=== PATIENT | female | born 1975 | race Caucasian/White ===

== ENCOUNTER 2021-02-26 04:25 | Emergency (ER) | payer BC ==
[2021-02-26] MEDS ORDERED: Sodium Chloride 0.9% 2.5 ML Syringe FLUSH PRN (04:45)
[2021-02-26] MEDS ORDERED: Sodium Chloride 0.9% 10 ML Syringe FLUSH PRN (04:45)
[2021-02-26] MEDS ORDERED: Sodium Chloride 0.9% 500 ML IV SCH (04:45)
--- NOTE | 2021-02-26 04:54 | EDM.PDOC ---
ED HPI GENERAL MEDICAL PROBLEM - General Chief Complaint: Respiratory Problem Stated Complaint: COVID POSITIVE; SHORTNESS OF BREATH Time Seen by Provider: 02/26/21 04:54 - History of Present Illness INITIAL COMMENTS - FREE TEXT/NARRATIVE: HISTORY AND PHYSICAL: History of present illness: Is a 45-year-old female with a history significant for hypothyroidism who was recently diagnosed with coronavirus with symptom onset on February 17 who presents ER today secondary to increasing shortness of breath. Patient reports that she is not had any recent fevers. She reports nausea with decreased p.o. intake but has been able to tolerate p.o.'s solids and liquids. Patient denies any diarrhea. Patient has any abdominal pain or chest pain. Patient denies any recent dysuria, frequency, urgency. Patient has any calf tenderness or swelling. Patient has any history of PE/DVT in the past. Review of systems: As per history of present illness and below otherwise all systems reviewed and negative. Past medical history: As per history of present illness and as reviewed below otherwise noncontributory. Surgical history: As per history of present illness and as reviewed below otherwise noncontributory. Social history: No reported history of drug abuse. Family history: As per history of present illness and as reviewed below otherwise noncontributory. Physical exam: This patient was seen and evaluated during the 2019 SARS-CoV-2 novel coronavirus pandemic period. Community viral transmission is ongoing at time of this encounter and the emergency department is operating under pandemic response procedures. Constitutional: Patient is oriented to person, place, and time. Appears well- developed and well-nourished. No distress. HEENT: Moist mucous membranes Head: Normocephalic and atraumatic Eyes: Right eye exhibits no discharge. Left eye exhibits no discharge. No scleral icterus Neck: Normal range of motion. No tracheal deviation present. Cardiovascular: Normal rate and regular rhythm. Pulmonary: Effort normal, no respiratory distress. No wheezing rales or rhonchi Abdominal: No distention Musculoskeletal: Normal range of motion Neurologic: Alert and oriented to person, place and time. Skin: [place], warm and dry. Psychiatric: Normal mood and affect. Behavior is normal. Judgment and thought content normal. Nursing note and vital signs have been reviewed Diagnostics: CBC, CMP, D-dimer. Patient's D-dimer was elevated 0.55 CTA chest Therapeutics: Decadron 10 mg IV Assessment and plan: 45-year-old female with a recent diagnosis of coronavirus who presents ER today secondary increasing shortness of breath. Patient's pulse oximeter here in the ED is 91 to 95%. Patient does not appear to be in any respiratory distress at this time. Patient will have basic labs ordered and we will obtain a CTA of her chest to rule out PE. Patient's D-dimer was elevated 0.55. CTA is pending at this time. Patient has been resting comfortably in her room and does not appear to be in any distress at this time. Patient was given Toradol 15 mg IV to assist her with pain that she was having in her chest with inspiration and this seems to have significantly improved after the Toradol. Patient had asked regarding infusion of Regeneron. I had a discussion with the patient regarding the criteria. At this time the patient is approximately 9 days out from symptom onset. Patient does not appear to be having have any high risk criteria. Patient is under 65, no history of chronic kidney disease, diabetes, cardiac disease, hypertension, immunosuppressive disorders, chronic lung disease. Patient's BMI is 25.8. For these reasons, I do not believe that the patient will meet criteria for Regeneron infusion. Definitive disposition and diagnosis as appropriate pending reevaluation and review of above. 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 Endocrine/Metabolic History: Reports: Hypothyroidism - Infectious Disease History Infectious Disease History: Reports: None - Past Surgical History HEENT Surgical History: Reports: Tonsillectomy Social & Family History - Tobacco Use Tobacco Use Status *Q: Never Tobacco User - Recreational Drug Use Recreational Drug Use: No ED ROS GENERAL - Review of Systems Review Of Systems: See Below ED EXAM, GENERAL - Physical Exam Exam: See Below Course - Vital Signs Last Recorded V/S: Last Vital Signs Temp 97.3 F 02/26/21 07:30 Pulse 68 02/26/21 07:30 Resp 18 02/26/21 07:30 BP 101/65 02/26/21 07:30 Pulse Ox 93 L 02/26/21 07:30 - Orders/Labs/Meds Orders: Active Orders 24 hr Category Date Time Status Saline Lock Insert [OM.PC] Stat Oth 02/26/21 04:45 Ordered Labs: Laboratory Tests 02/26/21 02/26/21 02/26/21 Range/Units 04:52 04:52 04:52 WBC 7.38 (4.0-11.0) K/uL RBC 4.67 (4.30-5.90) M/uL Hgb 14.5 (12.0-16.0) g/dL Hct 41.7 (36.0-46.0) % MCV 89.3 (80.0-98.0) fL MCH 31.0 (27.0-32.0) pg MCHC 34.8 (31.0-37.0) g/dL RDW Std Deviation 43.4 (28.0-62.0) fl RDW Coeff of Paige 13 (11.0-15.0) % Plt Count 196 (150-400) K/uL MPV 11.40 (7.40-12.00) fL Neut % (Auto) 68.5 (48.0-80.0) % Lymph % (Auto) 25.2 (16.0-40.0) % [place] % (Auto) 6.2 (0.0-15.0) % Eos % (Auto) 0.0 (0.0-7.0) % Baso % (Auto) 0.1 (0.0-1.5) % Neut # (Auto) 5.1 (1.4-5.7) K/uL Lymph # (Auto) 1.9 (0.6-2.4) K/uL [place] # (Auto) 0.5 (0.0-0.8) K/uL Eos # (Auto) 0.0 (0.0-0.7) K/uL Baso # (Auto) 0.0 (0.0-0.1) K/uL Nucleated RBC % 0.0 /100WBC Nucleated RBCs # 0 K/uL D-Dimer, Quantitative 0.55 H (0.0-0.50) mg/L FEU Sodium 141 (136-145) mmol/L Potassium 3.9 (3.5-5.1) mmol/L Chloride 104 (98-107) mmol/L Carbon Dioxide 29.5 (21.0-32.0) mmol/L BUN 7 (7.0-18.0) mg/dL Creatinine 1.1 H (0.6-1.0) mg/dL Est Cr Clr Drug Dosing 66.78 mL/min Estimated GFR (MDRD) 53.5 ml/min Glucose 110 H (74-106) mg/dL Calcium 7.9 L (8.5-10.1) mg/dL Total Bilirubin 0.2 (0.2-1.0) mg/dL AST 32 (15-37) IU/L ALT 32 (14-63) IU/L Alkaline Phosphatase 71 (46-116) U/L Total Protein 6.7 (6.4-8.2) g/dL Albumin 3.2 L (3.4-5.0) g/dL Globulin 3.5 (2.6-4.0) g/dL Albumin/Globulin Ratio 0.9 (0.9-1.6) Meds: Medications Discontinued Medications Generic Name Dose Route Start Last Admin Trade Name Freq PRN Reason Stop Dose Admin Dexamethasone 10 mg 02/26/21 04:56 02/26/21 05:15 Dexamethasone 10 Mg/Ml Sdv IVPUSH 02/26/21 04:57 10 mg ONETIME ONE Administration Sodium Chloride 500 mls @ 999 mls/hr 02/26/21 04:45 02/26/21 04:59 Normal Saline IV 999 mls/hr .BOLUS SCOTTY Administration Iopamidol 75 ml 02/26/21 06:00 Iopamidol 755 Mg/Ml 500 Ml Multipack Bottle IVPUSH 02/26/21 06:01 ONETIME ONE Ketorolac Tromethamine Confirm 02/26/21 06:16 02/26/21 06:48 Ketorolac 15 Mg/Ml Sdv Administered 02/26/21 06:17 Not Given Dose 15 mg .ROUTE .STK-MED ONE Ketorolac Tromethamine 15 mg 02/26/21 05:52 02/26/21 06:42 Ketorolac 15 Mg/Ml Sdv IVPUSH 02/26/21 05:53 15 mg Q6H STA Administration Sodium Chloride 10 ml 02/26/21 04:45 Sodium Chloride 0.9% 10 Ml Syringe FLUSH ASDIRECTED PRN Keep Vein Open Sodium Chloride 2.5 ml 02/26/21 04:45 Sodium Chloride 0.9% 2.5 Ml Syringe FLUSH ASDIRECTED PRN Keep Vein Open Departure - Departure Time of Disposition: 07:00 Disposition: Home, Self-Care 01 Condition: Good Clinical Impression: Pneumonia due to 2019 novel coronavirus, Shortness of breath - Discharge Information Prescriptions: predniSONE [Prednisone] 50 mg PO DAILY #5 tablet traMADol [Ultram] 50 mg PO Q6H PRN #12 tab PRN Reason: Pain Instructions: Shortness of Breath, Adult, [id number], 10 Things You Can Do to Manage Your COVID-19 Symptoms at Home - [facility] (12/14/2020), Shortness of Breath, Adult, How to Wear and Take Off Your Mask - [facility] (08/30/2020), COVID-19: Quarantine vs. Isolation - [facility] (05/17/2020) Referrals: Elda Herring EXCHANGE ADMINISTRATOR [Primary Care Provider] - Forms: ED Department Discharge Additional Instructions: You were seen and evaluated in the ER today secondary to progressive shortness of breath and worsening Covid infection. Your blood tests in the emergency department today were all within normal limits. We did obtain a CTA of your chest to rule out pulmonary embolisms. Your CT scan of your chest does not know any evidence of pulmonary embolism but does show some increased inflammation in your lungs from coronavirus. 1. Your vital signs and oxygen saturation are well enough that you were able to monitor your symptoms at home. Continue to monitor for trouble breathing, new confusion or inability to arouse, bluish lips or face or any of the other symptoms we discussed -if this occurs please return to the emergency room. 2. Please self quarantine over the next 10 days. Inform any persons that you have been in contact with since you started becoming symptomatic that you have tested positive; they should be made aware and take the appropriate steps as needed. 3. You can take NyQuil during the evening to help get a restful night sleep. May alternate Tylenol and ibuprofen as needed for pain and fever management. 4. The [facility] department will be calling you and following up with you. The [place] COVID 19 Hotline phone number , They are open [place] - Thursday 7am - 7pm. Follow up with your primary care provider for re-evaluation and re-testing after the 10 day quarantine and discuss when you should be seen. The following information is given to patients seen in the emergency department who are being discharged to home. This information is to outline your options for follow-up care. We provide all patients seen in our emergency department with a follow-up referral. The need for follow-up, as well as the timing and circumstances, are variable depending upon the specifics of your emergency department visit. If you don't have a primary care physician on staff, we will provide you with a referral. We always advise you to contact your personal physician following an emergency department visit to inform them of the circumstance of the visit and for follow-up with them and/or the need for any referrals to a consulting specialist. The emergency department will also refer you to a specialist when appropriate. This referral assures that you have the opportunity for follow-up care with a specialist. All of these measure are taken in an effort to provide you with optimal care, which includes your follow-up. Under all circumstances we always encourage you to contact your private physician who remains a resource for coordinating your care. When calling for follow-up care, please make the office aware that this follow-up is from your recent emergency room visit. If for any reason you are refused follow-up, please contact the [facility] Emergency Department at and asked to speak to the emergency department charge nurse. [facility] [address] [place] [id number] [facility] [address] [place] [id number] Sepsis Event Note (ED) - Evaluation Sepsis Screening Result: No Definite Risk - My Orders Last 24 Hours: My Active Orders 02/26/21 04:45 Saline Lock Insert [OM.PC] Stat - Assessment/Plan Last 24 Hours: My Active Orders 02/26/21 04:45 Saline Lock Insert [OM.PC] Stat
[2021-02-26] MEDS ORDERED: Dexamethasone 10 MG/ML SDV IVPUSH ONE (04:56)
[2021-02-26 05:33] LABS: CARBON DIOXIDE,CO2 29.5 mmol/L (21.0-32.0); POTASSIUM,K 3.9 mmol/L (3.5-5.1)
[2021-02-26] MEDS ORDERED: Ketorolac 15 MG/ML SDV IVPUSH STA (05:52)
[2021-02-26] MEDS ORDERED: Iopamidol 755 MG/ML 500 ML Multipack Bottle IVPUSH ONE (06:00)
[2021-02-26] MEDS ORDERED: Ketorolac 15 MG/ML SDV ONE (06:16)
--- NOTE | 2021-02-26 06:58 | CT ---
Indication: Shortness of breath, positive for granados virus Technique: Volumetric multidetector CT images of the chest were obtained after the administration of IV contrast. 75 cc Isovue 370 low osmolar intravenous contrast Comparison: None available. Findings: The thoracic inlet and thyroid gland are unremarkable. The thoracic aorta is nonaneurysmal. There is no central filling defect to suggest pulmonary embolism. There are enlarged mediastinal and hilar lymph nodes. There is no axillary adenopathy. There is mild to moderate central bronchial thickening. There are patchy airspace and ground-glass opacities seen throughout the bilateral hemithoraces commensurate with multifocal viral infiltrates. There is no evidence of pulmonary mass or suspicious pulmonary nodule. The partially visualized upper abdominal viscera are within normal limits. The thoracic vertebral body heights are grossly maintained with mild multi-level degenerative disc disease. There is no evidence of displaced fracture. Impression: Extensive patchy interstitial, ground-glass and airspace opacities throughout the bilateral hemithoraces with central bronchial thickening and reactive adenopathy commensurate with multifocal bilateral infiltrates. No evidence of pulmonary embolus. Please note that all CT scans at this facility use dose modulation, iterative reconstruction, and/or weight-based dosing when appropriate to reduce radiation dose to as low as reasonably achievable. Dictated by Domingo Henson MD @ 02/26/2021 6:56:30 AM (Electronically Signed)
== END 2021-02-26 07:35 | disposition home or self-care (01) ==
LOC: MW.ED 04:25
DX: U07.1 COVID-19 (principal); J12.82 Pneumonia due to coronavirus disease 2019
CPT/HCPCS: 36415; 71275; 80053; 85025; 85379; 96374; 96375; 99285; J1100; J1885; J7040